=== PATIENT | male | born 1940 | race Caucasian/White ===

== ENCOUNTER 2020-11-14 16:32 | Emergency (ER) | payer MEDICARE, BC ==
--- NOTE | 2020-11-14 17:09 | EDM.PDOC ---
ED HPI GENERAL MEDICAL PROBLEM - General Chief Complaint: General Stated Complaint: CONGESTION Time Seen by Provider: 11/14/20 16:45 Source of Information: Reports: Patient, EMS, Detention Records History Limitations: Reports: No Limitations - History of Present Illness INITIAL COMMENTS - FREE TEXT/NARRATIVE: Patient sent from [place] via ambulance with increased respiratory rate, cough, hypoxia. RR was 32 with sats 90% on RA. Patient has significant dementia. He denies any pain in chest, head, abdomen, or extremities. He has only been at [place] for 3 weeks. - Related Data Allergies Allergy/AdvReac Type Severity Reaction Status Date / Time TITUS Inhibitors Allergy Cannot Verified 11/14/20 16:55 Remember diltiazem Allergy Cannot Verified 11/14/20 16:55 Remember doxazosin Allergy Cannot Verified 11/14/20 16:55 Remember hydrocodone Allergy Cannot Verified 11/14/20 16:55 Remember oxycodone Allergy Cannot Verified 11/14/20 16:55 Remember tramadol Allergy Cannot Verified 11/14/20 16:55 Remember Home Meds: Home Meds Acetaminophen [Tylenol Extra Strength] 500 mg PO Q6H PRN 11/14/20 [History] Apixaban [Eliquis] 5 mg PO BID 11/14/20 [History] Aspirin [Adult Low Dose Aspirin EC] 81 mg PO DAILY 11/14/20 [History] Bisacodyl [Laxative Suppository] 10 mg RC DAILY PRN 11/14/20 [History] Divalproex Sodium [Depakote] 375 mg PO TID 11/14/20 [History] Donepezil HCl [Aricept] 10 mg PO BEDTIME 11/14/20 [History] Escitalopram Oxalate 5 mg PO BEDTIME 11/14/20 [History] LORazepam [Lorazepam] 0.5 mg PO DAILY 11/14/20 [History] Melatonin 3 mg PO BEDTIME 11/14/20 [History] Ramelteon [Rozerem] 8 mg PO BEDTIME 11/14/20 [History] Sennosides [Senna] 1 tab PO BID 11/14/20 [History] amLODIPine [Norvasc] 2.5 mg PO DAILY 11/14/20 [History] atorvaSTATin Calcium [Lipitor] 40 mg PO BEDTIME 11/14/20 [History] carvediloL [Carvedilol] 12.5 mg PO BID 11/14/20 [History] guaiFENesin [Guaifenesin] 20 ml PO Q4H PRN 11/14/20 [History] polyethylene glycoL 3350 [MiraLAX] 17 gm PO DAILY PRN 11/14/20 [History] Social & Family History - Tobacco Use Tobacco Use Status *Q: Never Tobacco User - Caffeine Use Caffeine Use: Reports: None - Recreational Drug Use Recreational Drug Use: No ED ROS GENERAL - Review of Systems Review Of Systems: Comprehensive ROS is negative, except as noted in HPI. (somewhat limited by dementia but adequate) ED EXAM, GENERAL - Physical Exam Exam: See Below Exam Limited By: No Limitations General Appearance: Alert, WD/WN, No Apparent Distress Eye Exam: Bilateral Eye: EOMI, Normal Inspection, PERRL Ears: Normal External Exam, Hearing Grossly Normal Nose: Normal Inspection, No Blood Throat/Mouth: Normal Inspection, Normal Lips, Normal Voice, No Airway Compromise Head: Atraumatic, Normocephalic Neck: Normal Inspection, Full Range of Motion Respiratory/Chest: Respiratory Distress (mild tachypnea), Crackles (bilat bases; coarse on left). No: Wheezing, Stridor Cardiovascular: Regular Rate, Rhythm, No Murmur Peripheral Pulses: 2+: Radial (L), Radial (R), Posterior Tibial (R), 3+: Dorsalis Pedis (L) GI/Abdominal: Normal Bowel Sounds, Soft, Non-Tender, No Organomegaly, No Distention Back Exam: Normal Inspection Extremities: Normal Inspection, Non-Tender, No Pedal Edema Neurological: Alert, No Motor/Sensory Deficits Psychiatric: Normal Affect, Depressed Mood (initially but appeared to cheer up with more interaction) Skin Exam: Warm, Dry, Intact, Normal Color, No Rash Course - Vital Signs Text/Narrative:: CXR shows mild interstitial infiltrates in bilat lung bases, right greater than left. No edema, possible mild effusions. Last Recorded V/S: Last Vital Signs Temp 99.2 F 11/14/20 16:37 Pulse 65 11/14/20 18:00 Resp 22 H 11/14/20 18:00 BP 148/78 H 11/14/20 18:00 Pulse Ox 92 L 11/14/20 18:00 - Orders/Labs/Meds Orders: Active Orders 24 hr Category Date Time Status CULTURE BLOOD [BC] Stat Lab 11/14/20 16:58 Ordered CULTURE BLOOD [BC] Stat Lab 11/14/20 16:58 Ordered Blood Culture x2 Reflex Set [OM.PC] Stat Oth 11/14/20 16:56 Ordered Labs: Laboratory Tests 11/14/20 11/14/20 11/14/20 Range/Units 17:15 17:15 17:15 WBC 11.77 H (5.00-10.00) 10^3/uL RBC 5.09 (4.50-6.00) 10^6/uL Hgb 14.3 (13.0-17.0) g/dL Hct 45.4 (40.0-52.0) % MCV 89.2 (82.0-92.0) fL MCH 28.1 (27.0-31.0) pg MCHC 31.5 L (32.0-36.0) g/dL RDW 15.7 H (11.5-14.5) % Plt Count 161 (150-400) 10^3/uL MPV 11.2 H (7.4-10.4) fL Immature Gran % (Auto) 0.2 (0.0-5.0) % Neut % (Auto) 70.3 H (50.0-70.0) % Lymph % (Auto) 17.3 L (20.0-40.0) % Cherry % (Auto) 11.9 H (2.0-8.0) % Eos % (Auto) 0.2 L (1.0-3.0) % Baso % (Auto) 0.1 (0.0-1.0) % Neut # (Auto) 8.28 H (2.50-7.00) 10^3/uL Lymph # (Auto) 2.04 (1.00-4.00) 10^3/uL Cherry # (Auto) 1.40 H (0.10-0.80) 10^3/uL Eos # (Auto) 0.02 L (0.10-0.30) 10^3/uL Baso # (Auto) 0.01 (0.00-0.10) 10^3/uL Immature Gran # (Auto) 0.02 (0.00-0.50) 10^3/uL Sodium 141 (136-145) mmol/L Potassium 4.6 (3.5-5.1) mmol/L Chloride 102 (98-107) mmol/L Carbon Dioxide 30.7 (21.0-32.0) mmol/L Anion Gap 12.9 (5-15) mmol/L BUN 25 H (7-18) mg/dL Creatinine 0.96 (0.51-1.17) mg/dL Est Cr Clr Drug Dosing 59.38 mL/min Estimated GFR (MDRD) > 60 mL/min Glucose 114 (70-140) mg/dL Lactic Acid 1.2 (0.4-2.0) mmol/L Calcium 8.5 L (8.7-10.3) mg/dL Total Bilirubin 0.5 (0.2-1.0) mg/dL AST 13 L (15-37) U/L ALT 20 (14-63) U/L Alkaline Phosphatase 52 (46-116) U/L B-Natriuretic Peptide 83 (0-100) pg/mL Total Protein 7.1 (6.4-8.2) g/dL Albumin 2.82 L (3.40-5.00) g/dL Specimen Type Urine Color (YELLOW) Urine Appearance (CLEAR) Urine pH (5.0-9.0) Ur Specific Troy (1.005-1.030) Urine Protein (NEGATIVE) mg/dL Urine Glucose (UA) (NEGATIVE) mg/dL Urine Ketones (NEGATIVE) mg/dL Urine Occult Blood (NEGATIVE) Urine Nitrite (NEGATIVE) Urine Bilirubin (NEGATIVE) Urine Urobilinogen (0.2-1.0) E.U./dL Ur Leukocyte Esterase (NEGATIVE) Urine RBC (0-5) /HPF Urine WBC (0-5) /HPF Ur Epithelial Cells /LPF Amorphous Sediment (0/HPF) /HPF Urine Bacteria (NONE TO FEW) /HPF Urine Mucus (NEGATIVE) /LPF 11/14/20 Range/Units 17:20 WBC (5.00-10.00) 10^3/uL RBC (4.50-6.00) 10^6/uL Hgb (13.0-17.0) g/dL Hct (40.0-52.0) % MCV (82.0-92.0) fL MCH (27.0-31.0) pg MCHC (32.0-36.0) g/dL RDW (11.5-14.5) % Plt Count (150-400) 10^3/uL MPV (7.4-10.4) fL Immature Gran % (Auto) (0.0-5.0) % Neut % (Auto) (50.0-70.0) % Lymph % (Auto) (20.0-40.0) % Cherry % (Auto) (2.0-8.0) % Eos % (Auto) (1.0-3.0) % Baso % (Auto) (0.0-1.0) % Neut # (Auto) (2.50-7.00) 10^3/uL Lymph # (Auto) (1.00-4.00) 10^3/uL Cherry # (Auto) (0.10-0.80) 10^3/uL Eos # (Auto) (0.10-0.30) 10^3/uL Baso # (Auto) (0.00-0.10) 10^3/uL Immature Gran # (Auto) (0.00-0.50) 10^3/uL Sodium (136-145) mmol/L Potassium (3.5-5.1) mmol/L Chloride (98-107) mmol/L Carbon Dioxide (21.0-32.0) mmol/L Anion Gap (5-15) mmol/L BUN (7-18) mg/dL Creatinine (0.51-1.17) mg/dL Est Cr Clr Drug Dosing mL/min Estimated GFR (MDRD) mL/min Glucose (70-140) mg/dL Lactic Acid (0.4-2.0) mmol/L Calcium (8.7-10.3) mg/dL Total Bilirubin (0.2-1.0) mg/dL AST (15-37) U/L ALT (14-63) U/L Alkaline Phosphatase (46-116) U/L B-Natriuretic Peptide (0-100) pg/mL Total Protein (6.4-8.2) g/dL Albumin (3.40-5.00) g/dL Specimen Type Urincc Urine Color Yellow (YELLOW) Urine Appearance Clear (CLEAR) Urine pH 7.0 (5.0-9.0) Ur Specific [place] 1.020 (1.005-1.030) Urine Protein 30 H (NEGATIVE) mg/dL Urine Glucose (UA) Negative (NEGATIVE) mg/dL Urine Ketones Trace H (NEGATIVE) mg/dL Urine Occult Blood Negative (NEGATIVE) Urine Nitrite Negative (NEGATIVE) Urine Bilirubin Negative (NEGATIVE) Urine Urobilinogen 0.2 (0.2-1.0) E.U./dL Ur Leukocyte Esterase Negative (NEGATIVE) Urine RBC 0-5 (0-5) /HPF Urine WBC 0-5 (0-5) /HPF Ur Epithelial Cells Occasional /LPF Amorphous Sediment Occasional (0/HPF) /HPF Urine Bacteria Few (NONE TO FEW) /HPF Urine Mucus Few H (NEGATIVE) /LPF Meds: Medications Discontinued Medications Generic Name Dose Route Start Last Admin Trade Name Juan Cq PRN Reason Stop Dose Admin Amoxicillin 2,000 mg 11/14/20 18:03 Amoxicillin 500 Mg Cap PO 11/14/20 18:04 ONETIME ONE Doxycycline Hyclate 200 mg 11/14/20 18:03 Doxycycline 50 Mg Cap PO 11/14/20 18:04 ONETIME ONE - Re-Assessments/Exams Free Text/Narrative Re-Assessment/Exam: 11/14/20 18:11 CXR shows mild interstitial infiltrates in lung bases, right greater than left. WBC is mildly elevated. Lactate is normal. BNP is normal. Single blood culture is pending, patient refused the second. He is getting quite agitated and wants to leave but doesn't want to go back to [place], wants to go home and do chores and see his . Significant dementia is evident. I discussed findings and treatment plan with him which he seems to partially understand. Giving Amoxicillin 1 gm and Doxycycline 100 mg in ER with Rx and orders for Amoxicillin 1 gm tid x 10 days, Doxycycline 100 mg bid x 10 days. Patient medically stable at discharge. Departure - Departure Time of Disposition: 18:17 Disposition: DC/Tfer to SNF 03 Condition: Good Clinical Impression: Pneumonia Qualifiers: Pneumonia type: due to unspecified organism Laterality: bilateral Lung location: lower lobe of lung Qualified Code(s): J18.9 - Pneumonia, unspecified organism - Discharge Information Instructions: Community-Acquired Pneumonia, Adult, [id number] Forms: ED Department Discharge Additional Instructions: Orders on separate order form. Sepsis Event Note (ED) - Evaluation Sepsis Screening Result: No Definite Risk - Focused Exam Vital Signs: Vital Signs Temp Pulse Resp BP Pulse Ox 11/14/20 18:00 65 22 H 148/78 H 92 L 11/14/20 17:45 66 18 146/81 H 91 L 11/14/20 17:30 66 12 132/78 90 L 11/14/20 17:00 65 28 H 145/77 H 94 L 11/14/20 16:45 66 16 161/77 H 91 L 11/14/20 16:37 99.2 F 66 28 H 165/88 H 93 L - My Orders Last 24 Hours: My Active Orders 11/14/20 16:56 Blood Culture x2 Reflex Set [OM.PC] Stat 11/14/20 16:58 CULTURE BLOOD [BC] Stat CULTURE BLOOD [BC] Stat - Assessment/Plan Last 24 Hours: My Active Orders 11/14/20 16:56 Blood Culture x2 Reflex Set [OM.PC] Stat 11/14/20 16:58 CULTURE BLOOD [BC] Stat CULTURE BLOOD [BC] Stat
--- NOTE | 2020-11-14 17:39 | CR ---
[id number] RAD/RAD Chest PA or AP 1V EXAM: FRONTAL CHEST INDICATION: DYSPNEA, COUGH, COARSE CRACKLES. COMPARISON: None. DISCUSSION: Mild interstitial infiltrates versus atelectasis in the lung bases, right greater than left. Borderline heart size without evidence of edema. Possible trace pleural effusions. IMPRESSION: 1. Mild interstitial infiltrates versus atelectasis in the lung bases, right greater than left. 2. Possible small bilateral effusions. Miguel A Barclay MD 11/14/20 [id number] Thank you for allowing us to participate in the care of your patient.
[2020-11-14 17:43] LABS: ANION GAP 12.9 mmol/L (5-15); CHLORIDE,CL 102 mmol/L (98-107); SODIUM,NA 141 mmol/L (136-145)
[2020-11-14] MEDS ORDERED: Amoxicillin 500 MG Cap PO ONE (18:03)
== END 2020-11-14 19:15 ==
LOC: KA.ED 16:32
DX: J18.9 Pneumonia, unspecified organism (principal); Z88.5 Allergy status to narcotic agent; Z88.8 Allergy status to other drugs, medicaments and biological substances; Z79.01 Long term (current) use of anticoagulants; Z79.899 Other long term (current) drug therapy
CPT/HCPCS: 36415; 71045; 80053; 81001; 83605; 83880; 85025; 87040; 99284; 99284-25; A9270-GY